=== PATIENT | male | born 1995 | race Caucasian/White ===

== ENCOUNTER 2017-05-05 20:30 | Observation (INO) | payer BC, OTHER, SELFPAY ==
[2017-05-05] MEDS ORDERED: Ibuprofen 200 MG TAB ONE (21:43)
--- NOTE | 2017-05-05 22:03 | RAD ---
RIGHT ANKLE THREE VIEWS: 05/05/17 HISTORY: Injury, right ankle pain. FINDINGS/IMPRESSION: Fracture dislocation is seen at the ankle joint with fractures of the distal fibula and the posterola teral aspect of the distal tibia. POS: [facility]
[2017-05-05] MEDS ORDERED: Fentanyl 100 MCG/2 ML VIAL ONE ×3 (23:08→23:58)
[2017-05-05] MEDS ORDERED: Propofol 500 MG/50 ML VIAL ONE (23:24)
[2017-05-06] MEDS ORDERED: traMADol HCl 50 MG TAB PO PRN (01:49)
[2017-05-06] MEDS ORDERED: Ondansetron ODT 4 MG TAB PO PRN (01:50)
[2017-05-06] MEDS ORDERED: Morphine 2 mg/2ml in 0.9% NaCl PF SYRINGE IVP PRN (01:50)
[2017-05-06] MEDS ORDERED: Ondansetron HCl/PF 4 MG/2 ML Vial IVP PRN ×2 (01:50→18:03)
[2017-05-06] MEDS ORDERED: Dextrose 5% in Water 1,000 ML IV PRN (01:50)
[2017-05-06] MEDS ORDERED: Dextrose 50% Abboject 50 ML SYRINGE SLOW IVP PRN (01:50)
[2017-05-06 04:00] LABS: Anion Gap 13 mmol/L (10-20); BUN (Urea Nitrogen) 16 mg/dL (8.9-20.6); Calc. Creatinine Clearance 0 mL/min (70-130); Carbon Dioxide 25 mmol/L (22-29); Chloride 105 mmol/L (98-107); Estimated GFR-MDRD Greater than 90; Glucose 102 mg/dL (70-105); Potassium 4.4 mmol/L (3.5-5.1); Sodium 139 mmol/L (136-145)
--- NOTE | 2017-05-06 04:35 | HP ---
DATE OF ADMISSION: 05/05/2017 ATTENDING PHYSICIAN: Dr. Ambrose Rodríguez. HISTORY OF PRESENT ILLNESS: This is a 22-year-old male who fell from a skateboard. Patient had imme diate onset of right ankle pain. Patient denies any head trauma or loss of consciousness. He was ev aluated in the emergency room and found to have a right ankle fracture. Orthopedic Surgery was notif ied and Trauma Service was asked to admit. Upon my evaluation, patient has a chief complaint of righ t ankle pain. No other complaints at this time. ALLERGIES: None. HOME MEDICATIONS: Include zqwu-[id number]-mniwksb allergy medication and cough suppressants. PAST MEDICAL HISTORY: Chronic back pain. SOCIAL HISTORY: He is a student in [employer], studying [employer]. He endorses social/2-3 time s weekly alcohol use, occasional tobacco use, and occasional marijuana use. FAMILY HISTORY: Significant for father and grandfather with CAD. REVIEW OF SYSTEMS: Negative except as indicated in HPI. PHYSICAL EXAMINATION: VITAL SIGNS: Include heart rate 69, blood pressure 127/74, O2 sat 98% on room air, temperature 98.9. GENERAL: Well-developed male in no acute distress, resting in bed. HEAD: Normocephalic, atraumatic. EYES: Pupils are PERRL. Extraocular movements are intact. NECK: Supple. Trachea is midline. CHEST: Atraumatic, normal work of breathing. Lungs are clear to auscultation bilaterally. CARDIOVASCULAR: Regular rate and rhythm, no obvious murmurs, rubs, or gallops. GASTROINTESTINAL: Soft, nontender, nondistended. Bowel sounds are positive. BACK: Being reported as within normal limits. MUSCULOSKELETAL: Bilateral upper extremities within normal limits. Left lower extremity within norm al limits. Right ankle has been splinted by ER physician. He is neurovascularly intact distal to th e side of his injury. NEUROLOGIC: GCS of 15. No focal deficit noted. LABORATORY FINDINGS: Pending. RADIOGRAPHIC FINDINGS: Right ankle x-ray prior to splinting was significant for fracture dislocation of distal fibula and posterolateral aspect of the distal tibia per Radiology, shows improved alignme nt of fracture dislocation. ASSESSMENT: 1. Status post fall from skateboard. 2. Right ankle fracture. 3. Acute traumatic pain. PLAN: 1. Admit to Trauma Services. 2. Orthopedic surgery has been notified and intends for operative intervention to the injury later t monique. Patient should be n.p.o. with medications. Postoperative PT. Perioperative pain management. 3. DVT and gastritis prophylaxis as appropriate. Plans for admission were discussed with patient at bedside who vocalized his understanding. Trauma attending has been notified of admission.
[2017-05-06] MEDS: Acetaminophen 500 MG TAB PO SCH ×4 (05:03→20:25)
[2017-05-06] MEDS: Ketorolac Tromethamine 30 MG/ML VIAL IVP SCH ×4 (05:46→23:10)
[2017-05-06] MEDS: Sodium Chloride 0.9% 1,000 ML IV SCH ×2 (05:46→19:39)
[2017-05-06 07:41] VITALS: BMI 22.0
[2017-05-06] MEDS ORDERED: CEFAZOLIN/Water 2 GM/20 ML SYRINGE SLOW IVP SCH (07:45)
--- NOTE | 2017-05-06 07:57 | CON ---
DATE OF CONSULTATION: 05/06/2017 ORTHOPEDIC CONSULTATION ATTENDING PHYSICIAN: Dr. Ambrose Rodríguez. BRIEF HISTORY OF PRESENT ILLNESS: Patient is a pleasant 22-year-old gentleman who was examined in [facility] bed. He reports that on 05/05/2017, he was skateboarding when he fell and sustained an in version injury to the right ankle. He reports immediate pain and deformity at the ankle. He denies striking his head or any loss of consciousness. Upon arrival at the emergency room at [facility], he was found to have a deformed right ankle. X-rays were obtained that showed a lateral malleolar frac ture with subluxation of the talus from underneath the weightbearing plafond as well as a small poste rior malleolar fragment. A closed reduction and splint was applied to the ankle in the ER and then p atient admitted to Trauma Service. PAST MEDICAL HISTORY: Otherwise, healthy except for some history of chronic low back pain. PAST SURGICAL HISTORY: Negative. MEDICATIONS: Just bkzx-mya-rjsqthb cold medications currently. ALLERGIES: None known. SOCIAL HISTORY: The patient is a student at [employer]. He consumes alcohol 2-3 times a week. Does use tobacco occasionally and occasional marijuana. FAMILY HISTORY: Remarkable for heart disease on his father's side of the family. REVIEW OF SYSTEMS: Remarkable for age. Otherwise healthy 22-year-old, he denies recent fevers, chil ls or sweats. He denies chest pain or shortness of breath. He denies numbness or tingling. PHYSICAL EXAMINATION: VITAL SIGNS: In the emergency room, patient had a heart rate of 69, blood pressure 127/74 and temper ature of 98.9 degrees Fahrenheit. HEENT: Atraumatic, normocephalic. HEART: Shows a regular rate and rhythm without murmur. Chest wall is nontender with good expansion. LUNGS: Clear to auscultation bilaterally with good breath sounds. ABDOMEN: Flat and nondistended with normal bowel sounds. EXTREMITIES: Remarkable for bilateral upper extremities that are atraumatic. A left lower extremity also atraumatic. Right lower extremity remarkable for atraumatic hip and knee. The ankle is in a f iberglass splint. He is wiggling his toes normally. Denies numbness or tingling over the dorsal or plantar surface of the toes. He has no pain with passive stretch. IMAGING DATA: X-rays pre and post-reduction x-ray of the ankle was obtained in the emergency room an d is remarkable for a lateral malleolus fracture with displacement as well as a posterior malleolar f ragment. The reduction does restore the talus underneath the weightbearing plafond with reasonable r eduction of the fracture. I do not appreciate significant fracture on the medial side of the ankle. ASSESSMENT: A 22-year-old gentleman status post skateboard accident sustaining a bimalleolar ankle f racture. PLAN: The patient currently is admitted to the Trauma Service. He is n.p.o. We plan on taking him to the operating room later this afternoon for open reduction and internal fixation. Today, we discu ssed risks and benefits of the surgery. Risks include but are not limited to bleeding, infection, ne rve injury, DVT, PE, loss of limb or life. We also discussed that there will be stiffness following surgery and need for rehabilitation. Patient appears to understand and does wish to proceed with felisha mccall. Informed consent will be obtained prior to his surgical procedure later this afternoon.
--- NOTE | 2017-05-06 08:08 | RAD ---
THREE VIEWS RIGHT ANKLE: Date: 05-05-17 Comparison: Same day. History: Fracture status post reduction. FINDINGS: Prior study demonstrated a fracture dislocation of the right ankle. The patient has been placed in a cast. The previously noted dislocation of the tibiotalar joint has been reduced and the marked wideni ng of the distal tibiofibular interspace is no longer present. The obliquely oriented distal right fi bular shaft fracture demonstrates minimal residual medial displacement. There is an obliquely oriente d posterior malleolar fracture with mild proximal and posterior displacement, improved as well. IMPRESSION: Interval reduction of previously noted right ankle joint dislocation. Fractures of the posterior mall eolus and the distal right fibula as above. POS: [facility]
[2017-05-06] MEDS: Morphine 2 MG/ML SYRINGE SLOW IVP PRN ×3 (08:22→19:17)
[2017-05-06] MEDS ORDERED: CEFAZOLIN/Water 2 GM/20 ML SYRINGE ONE (15:29)
[2017-05-06] MEDS ORDERED: Propofol 200 MG/20 ML VIAL ONE (15:49)
[2017-05-06] MEDS ORDERED: Lidocaine 1% PF 5 ML VIAL ONE (15:49)
[2017-05-06] MEDS ORDERED: Dexamethasone 20 MG/5 ML VIAL ONE (15:49)
[2017-05-06] MEDS ORDERED: diphenhydrAMINE 50 MG/ML VIAL ONE (15:49)
[2017-05-06] MEDS ORDERED: Ketorolac Tromethamine 30 MG/ML VIAL ONE (15:49)
[2017-05-06] MEDS ORDERED: Ondansetron HCl/PF 4 MG/2 ML Vial ONE (15:49)
[2017-05-06] MEDS ORDERED: Metoclopramide HCl 10 MG/2 ML VIAL ONE (15:49)
[2017-05-06] MEDS ORDERED: Bupivacaine PF 0.5% 30 ML VIAL ONE (16:09)
[2017-05-06] MEDS ORDERED: Midazolam HCl 2 mg/2 ml Vial ONE ×2 (16:14→16:30)
[2017-05-06] MEDS ORDERED: Fentanyl 100 MCG/2 ML VIAL ONE (16:14)
[2017-05-06] MEDS ORDERED: HYDROmorphone 2 MG/ML VIAL SLOW IVP PRN (18:03)
[2017-05-06] MEDS ORDERED: Morphine Sulfate 2 MG/ML SYRINGE SLOW IVP PRN (18:03)
--- NOTE | 2017-05-06 18:35 | PRG ---
DATE OF SERVICE: 05/06/2017 ATTENDING PHYSICIAN: Casper Perez, DO This is Mary Alamo, nurse practitioner dictating a daily progress note for Dr. Casper Perez. SUBJECTIVE: The patient is seen on a.m. rounds. He was admitted earlier tonight after falling from a skateboard with subsequent right ankle fracture. He was admitted to the hospital by the Trauma Ser vice. Orthopedic Surgery plans to take him to the OR later in the day for fixation of his ankle. He reports the pain has been well controlled. OBJECTIVE: VITAL SIGNS: Pulse 56, respirations 16, O2 sat 98% on room air, blood pressure 125/70, temperature 9 7.7. CONSTITUTIONAL: A 22-year-old male lying in bed in no acute distress. Does not appear to be in pain . EXTREMITIES: Right lower extremity with splint, and Remington wrap from calf to foot. Cap refill brisk. Neurovascularly intact. Moves all digits. ASSESSMENT: 1. A 22-year-old male status post fall from skateboard. 2. Right bimalleolar ankle fracture. PLAN: 1. Continue n.p.o. with IV analgesia. 2. OR this afternoon with Orthopedic Surgery. 3. PT, OT evaluation for crutch training. The patient was seen and examined with Dr. Perez, attending trauma surgeon, who agrees with the asses sment and plan, and cleared by physical therapy. He may be discharged home tomorrow if he has adequa te pain control.
--- NOTE | 2017-05-06 18:46 | RAD ---
RIGHT ANKLE TWO VIEWS 05/06/17 HISTORY: Fracture of the distal tibia and fibula. FINDINGS/IMPRESSION: There has been interval reduction and internal fixation of the distal fibular fracture with plate and screws. The ankle mortise is maintained. There is a fracture involving the posterior malleolus. POS: [facility]
[2017-05-06] MEDS: traMADol HCl 50 MG TAB PO PRN (20:25)
[2017-05-06] MEDS: CEFAZOLIN/Water 2 GM/20 ML SYRINGE SLOW IVP SCH (23:11)
[2017-05-07] MEDS: Acetaminophen 500 MG TAB PO SCH ×2 (03:25→09:12)
[2017-05-07] MEDS: traMADol HCl 50 MG TAB PO PRN (03:26)
[2017-05-07] MEDS: Ketorolac Tromethamine 30 MG/ML VIAL IVP SCH (05:39)
[2017-05-07] MEDS: CEFAZOLIN/Water 2 GM/20 ML SYRINGE SLOW IVP SCH (05:39)
[2017-05-07 06:00] LABS: #Lymphocytes 1.1 thou/uL (1.20-3.40); #Monocytes 1.1 thou/uL (0.11-0.59); %Basophils 0.3 % (0.0-1.0); %Eosinophils 0.1 % (0.0-10.0); %Lymphocytes 8.5 % (21.0-51.0); %Monocytes 8.4 % (0.0-10.0); %Neutrophils 82.7 % (42.0-75.0); Hemoglobin 13.7 g/dL (14.0-18.0); Mean Corpuscular HGB CONC 34.8 g/dL (32.0-36.0); Mean Corpuscular Hemoglobin 33.4 pg (27.0-31.0); Mean Corpuscular Volume 96.2 fl (80.0-94.0); Mean Platelet Volume 7.6 fL (7.4-10.4); Platelet Count 249 thou/uL (130-400); RBC Distribution Width 11.5 % (11.5-14.5); Red Blood Cell (RBC) Count 4.09 mill/uL (4.70-6.10); White Blood Cell (WBC) Count 13.4 thou/uL (4.8-10.8)
[2017-05-07 06:15] LABS: Anion Gap 11 mmol/L (10-20); BUN (Urea Nitrogen) 14 mg/dL (8.9-20.6); Calc. Creatinine Clearance 130 mL/min (70-130); Calcium 8.7 mg/dL (7.8-10.44); Carbon Dioxide 26 mmol/L (22-29); Chloride 103 mmol/L (98-107); Estimated GFR-MDRD Greater than 90; Glucose 118 mg/dL (70-105); Magnesium 1.8 mg/dL (1.6-2.6); Phosphorus 4.2 mg/dL (2.3-4.7); Potassium 4.2 mmol/L (3.5-5.1); Sodium 136 mmol/L (136-145)
[2017-05-07 08:51] VITALS: BP 124/66; TEMP 97.9
--- NOTE | 2017-05-07 15:50 | OP ---
DATE OF PROCEDURE: 05/06/2017 PREOPERATIVE DIAGNOSIS: Right bimalleolar ankle fracture. POSTOPERATIVE DIAGNOSIS: Right bimalleolar ankle fracture. SURGICAL PROCEDURE: Open reduction and internal fixation of right lateral malleolus. ANESTHESIA: General. SURGEON: Remigio Graham M.D. TOURNIQUET TIME: 53 minutes at 300 mmHg. BLOOD LOSS: 5 mL. IMPLANTS: Synthes 8-hole one third tubular plate with appropriate length cortical and cancellous scr ews. COMPLICATIONS: None. DRAINS: None. SPECIMEN: None. OUTCOME: Satisfactory. INDICATIONS: The patient is a 22-year-old gentleman status post skateboarding accident sustaining a right bimalleolar ankle fracture involving the lateral malleolus and a small portion of the posterior malleolus. There is some widening of the mortise. However, the main shaft fragment of the fibula s till has the anterior inferior tib-fib ligament attached to it and it was not breeding to be true syn desmotic injury. At this time, we are going to proceed with open reduction and internal fixation for this displaced fracture. Informed consent has been obtained. I believe all questions have been ans wered. DESCRIPTION OF PROCEDURE: The patient was brought to the operating room and a timeout performed foll owed by general anesthesia. The patient was then positioned supine on the OR table and a sterile pre p and drape was performed of the right lower extremity. The limb was then exsanguinated with Esmarch bandage, tourniquet inflated to 300 mmHg. A lateral incision was made over the distal fibula after skin was sharply incised, dissection was carried down bluntly to the underlying fracture. The fractu re hematoma was removed from the fracture gap and then the wound was lavaged with normal saline using bulb syringe. Next, the fracture was reduced and held in place with bone tenaculums. Next, two ant erior to posterior interfragmentary screws were placed in standard fashion getting compression across the main fracture line. This was then followed by contouring of 8-hole 1/3 tubular plate along the lateral cortex of the distal fibula. This was held in place with a total of 3 cancellous screws dist ally and 3 cortical screws proximally and used as a neutralization device. At this point, AP, latera l and mortise x-rays of the ankle were obtained that showed anatomic alignment of the lateral malleol us with rastafarian of the mortise and reduction of the posterior malleolar fragment. As such, the w ound was again irrigated and closed in layers with 0 Vicryl for the fascial closure, 2-0 Vicryl subcu taneously, and then 3-0 nylon in horizontal mattress fashion for the skin. A Xeroform gauze, Webril, and fiberglass splint was applied to the ankle. Tourniquet was let down and patient was transferred to recovery room in stable condition. There were no complications. He tolerated the procedure well .
--- NOTE | 2017-05-08 01:30 | DIS ---
DATE OF ADMISSION: 05/06/2017 DATE OF DISCHARGE: 05/07/2017. ADMITTING PHYSICIAN: Dr. Ambrose Rodríguez. CONSULTING PHYSICIAN: Dr. Graham, Orthopedics. REASON FOR HOSPITALIZATION: Fall from skateboard with right ankle pain. HOSPITAL DIAGNOSIS: Right ankle fracture. PROCEDURES: Fixation of right ankle fracture. DATE OF PROCEDURE: 05/06/2017. SURGEON: Dr. Graham. Please refer to Dr. Graham's complete operative report for details. DISCHARGE CONDITION: Good to home. BRIEF HISTORY OF HOSPITALIZATION: A 22-year-old male who was skateboarding when he fell from a skate board. He had right ankle pain. He was transported to [facility] where a right ankle fracture was identified. He was admitted to the hospital by Trauma Services. A consult was m kain to Dr. Graham, Orthopedics. He was taken to the OR by Dr. Graham for a repair of right ankle fracture. Please refer to Dr. Graham's note for complete operative detail. He was cleared by [facility] therapy to discharge to home with crutches. Pain was well controlled. He tolerated a regular diet. On the day of discharge, cap refill is brisk in all extremities. He was neurovascularly intac t. He is to follow up with Dr. Graham. He will obtain a prescription for pain medication from Dr. Graham. He can resume a regular diet. There is no need for him to follow up with Trauma Services . The patient was seen and examined with Dr. Perez, attending trauma surgeon, who agrees with the asses sment and discharge plan.
== END 2017-05-07 11:13 | disposition home or self-care (01) ==
LOC: ERS 20:30 → SURG A 05-06 01:50
PROVIDERS: ADMIT Specialist; ATTEND Specialist
PROC: 0QSJ04Z Reposition Right Fibula with Internal Fixation Device, Open Approach (ICD-10-PCS; principal; 2017-05-06)
DX: S82.841A Displaced bimalleolar fracture of right lower leg, initial encounter for closed fracture (principal); G89.11 Acute pain due to trauma; F17.210 Nicotine dependence, cigarettes, uncomplicated; F12.90 Cannabis use, unspecified, uncomplicated; G89.29 Other chronic pain; M54.9 Dorsalgia, unspecified; Z82.49 Family history of ischemic heart disease and other diseases of the circulatory system; Z79.899 Other long term (current) drug therapy; Z98.890 Other specified postprocedural states; V00.131A Fall from skateboard, initial encounter
CPT/HCPCS: 27810; 36415; 76001; 80048; 83735; 84100; 85025; 96361; 96374; 96375; 96376; 99152; C1713; G0378; G8978-GP-CI; G8979-GP-CI; G8980-GP-CI; J1100; J1200; J1885; J2001; J2250; J2270; J2405; J2704; J2765; J3010; S0020